=== PATIENT | female | born 1945 | race Caucasian/White ===

== ENCOUNTER → 2018-01-25 | Outpatient (CLI) | payer MEDICARE | END | disposition home or self-care (01) | LOC: CARD 08:55 | PROVIDERS: ATTEND Registered Nurse | DX: S22.008A Other fracture of unspecified thoracic vertebra, initial encounter for closed fracture (principal); R41.3 Other amnesia; X58.XXXA Exposure to other specified factors, initial encounter | CPT/HCPCS: 95819 ==